=== PATIENT | male | born 1990 | race Two or more races ===

== ENCOUNTER 2024-08-19 10:28 | Emergency (ER) | payer OTHER ==
[~2024-08-19] VITALS: Ht 185.4 cm; Wt 93.0 kg
[2024-08-19] MEDS ORDERED: PROTONIX40 M1 PO (10:51)
[2024-08-19] MEDS ORDERED: KETOROLAC TROMETHAMINE 60 MG VIAL IM ONE (13:00)
== END 2024-08-19 15:16 | disposition home or self-care (01) ==
LOC: ER 10:30
DX: M79.672 Pain in left foot (principal); S93.602A Unspecified sprain of left foot, initial encounter